=== PATIENT | male | born 1975 | race Two or more races ===

== ENCOUNTER 2021-05-19 13:05 | Emergency (ER) | payer OTHER ==
[~2021-05-19] VITALS: Ht 157.5 cm; Wt 69.0 kg
[2021-05-19] MEDS ORDERED: BACITRACIN ZINC OINT UDPKT TOP ONE (15:00)
[2021-05-19] MEDS ORDERED: TETANUS, DIPHTHERIA, PERTUSSIS VAC/PF 0.5ML (>10YR OLD) IM ONE (15:00)
[2021-05-19] MEDS ORDERED: ACETAMINOPHEN WITH CODEINE 300/30MG TABLET PO ONE (15:00)
[2021-05-19] MEDS ORDERED: LIDOCAINE HCL/PF 1% 10 MG/ML 5ML VIAL INFIL ONE (15:00)
[2021-05-19] MEDS ORDERED: LIDOCAINE HCL 1% 10 MG/ML 10ML VIAL INJ ONE (15:15)
[2021-05-19 15:34] VITALS: BP 128/81
[2021-05-19] MEDS ORDERED: BO1 TP (16:12)
[2021-05-19] MEDS ORDERED: ONDANSETRON 4MG ODT PO NR (16:15)
== END 2021-05-19 16:50 | disposition home or self-care (01) ==
LOC: ER 13:05
DX: S61.211A Laceration without foreign body of left index finger without damage to nail, initial encounter (principal); M25.572 Pain in left ankle and joints of left foot; W23.0XXA Caught, crushed, jammed, or pinched between moving objects, initial encounter; Y93.89 Activity, other specified; Y92.89 Other specified places as the place of occurrence of the external cause
CPT/HCPCS: 12001; 73140; 90471; 90715; 99283; J3490; Q0162

== ENCOUNTER 2021-05-21 13:47 | Emergency (ER) | payer OTHER ==
[~2021-05-21] VITALS: Ht 165.1 cm; Wt 74.0 kg
[~2021-05-21 13:47] MED LIST: BO1 TP
[2021-05-21 13:49] VITALS: BP 109/73
[2021-05-21] MEDS ORDERED: BACITRACIN ZINC OINT UDPKT TOP ONE (17:00)
[2021-05-21] MEDS ORDERED: AMOX-424 MT (17:24)
== END 2021-05-21 17:28 | disposition home or self-care (01) ==
LOC: ER 13:47
DX: Z48.00 Encounter for change or removal of nonsurgical wound dressing (principal)
CPT/HCPCS: 99282; 99283

== ENCOUNTER 2021-06-08 12:08 | Emergency (ER) | payer OTHER ==
[~2021-06-08] VITALS: Ht 177.8 cm; Wt 80.0 kg
[~2021-06-08 12:08] MED LIST changes: +AMOX-424 MT
[2021-06-08 12:11] VITALS: BP 118/65
== END 2021-06-08 14:11 | disposition home or self-care (01) ==
LOC: ER 12:08
DX: Z48.02 Encounter for removal of sutures (principal)
CPT/HCPCS: 99281; Z7610